=== PATIENT | male | born 1945 | race African-American/Black ===

== ENCOUNTER → 2016-03-21 | Outpatient (CLI) | payer MEDICARE, OTHER ==
[2016-03-21 11:23] LABS: ABSOLUTE EOSINOPHILS # (AUTO) 0.2 10^3/uL (0.0-0.6); ABSOLUTE LYMPHOCYTES (AUTO) 1.6 10^3/uL (0.5-4.7); ABSOLUTE MONOCYTES (AUTO) 0.6 10^3/uL (0.1-1.4); ABSOLUTE NEUT (AUTO) 3.5 10^3/uL (1.7-8.2); BASOPHILS % (AUTO) 0.5 % (0-2); HEMATOCRIT 34.9 % (37.9-51.0); HEMOGLOBIN 11.5 g/dL (13.5-17.0); HGB HCT DIFFERENCE -0.4; LYMPHOCYTES % (AUTO) 27.3 % (13-45); MEAN CORPUSCULAR HGB CONC 33.1 g/dL (32.0-36.0); MEAN CORPUSCULAR VOLUME 94 fl (80-97); MONOCYTES % (AUTO) 10.4 % (3-13); RED BLOOD COUNT 3.72 10^6/uL (4.35-5.55); RED CELL DISTRIBUTION WIDTH 13.7 % (11.5-14.0); SEGMENTED NEUTROPHILS % (AUTO) 58.8 % (42-78)
[2016-03-21 11:26] LABS: APPEARANCE,URINE CLEAR; BILIRUBIN,URINE NEGATIVE (NEGATIVE); GLUCOSE, URINE NEGATIVE (NEGATIVE); KETONES,URINE NEGATIVE (NEGATIVE); LEUKOCYTE ESTERASE,URINE NEGATIVE (NEGATIVE); NITRITE,URINE NEGATIVE (NEGATIVE); PROTEIN,URINE 30 mg/dL (NEGATIVE); URINE SPECIFIC GRAVITY 1.011; UROBILINOGEN,URINE NEGATIVE mg/dL (<2.0)
[2016-03-21 11:26] LABS: HEMATOCRIT 34.9 % (37.9-51.0); HEMOGLOBIN 11.5 g/dL (13.5-17.0); HGB HCT DIFFERENCE -0.4; MEAN CORPUSCULAR HGB CONC 33.1 g/dL (32.0-36.0); MEAN CORPUSCULAR VOLUME 94 fl (80-97); RED BLOOD COUNT 3.72 10^6/uL (4.35-5.55); RED CELL DISTRIBUTION WIDTH 13.7 % (11.5-14.0)
[2016-03-21 11:45] LABS: ALANINE AMINOTRANSFERASE 40 U/L (21-72); ALBUMIN 3.5 g/dL (3.5-5.0); ALKALINE PHOSPHATASE 62 U/L (38-126); ANION GAP 13 (5-19); ASPARTATE AMINO TRANSFERASE 26 U/L (17-59); BILIRUBIN,TOTAL 0.5 mg/dL (0.2-1.3); BLOOD UREA NITROGEN 24 mg/dL (7-20); CALCIUM 8.3 mg/dL (8.4-10.2); CARBON DIOXIDE 24 mmol/L (22-30); CHLORIDE 110 mmol/L (98-107); CREATININE RESULT 2.51 mg/dL (0.52-1.25); GLUCOSE 89 mg/dL (75-110); POTASSIUM 4.8 mmol/L (3.6-5.0); SODIUM 146.7 mmol/L (137-145); TOTAL PROTEIN 6.5 g/dL (6.3-8.2)
[2016-03-21 11:50] LABS: BLOOD UREA NITROGEN 24 mg/dL (7-20); CALCIUM 8.3 mg/dL (8.4-10.2); GLUCOSE 89 mg/dL (75-110)
[2016-03-21 11:51] LABS: ANION GAP 13 (5-19); CARBON DIOXIDE 24 mmol/L (22-30); CHLORIDE 110 mmol/L (98-107); CREATININE RESULT 2.51 mg/dL (0.52-1.25); POTASSIUM 4.8 mmol/L (3.6-5.0); SODIUM 146.7 mmol/L (137-145)
[2016-03-23 17:56] LABS: Direct HDL 44 mg/dL (>40); TRIGLYCERIDES 82 mg/dL (<150)
[2016-03-23 18:07] LABS: DIRECT LDL 136 mg/dL (<100)
== END ==
LOC: OD 09:54
PROVIDERS: ATTEND Internal Medicine Nephrology
DX: E11.22 Type 2 diabetes mellitus with diabetic chronic kidney disease (principal); N18.3 Chronic kidney disease, stage 3 (moderate); E87.5 Hyperkalemia; R80.9 Proteinuria, unspecified
CPT/HCPCS: 36415; 80048; 80053; 80061; 81001; 82728; 83036; 83540; 83550; 85025; 85027

== ENCOUNTER → 2016-04-09 | Outpatient (CLI) | payer MEDICARE, OTHER ==
--- NOTE | 2016-04-09 16:35 | XCELERA REPORT ---
[address] [address] Lower Extremity Venous Evaluation Name: CHRIS ROBERTSON Age: 70 yrs Gender: Male : 1945 Patient Status: Outpatient Patient Location: Study Date: 04/09/2016 10:40 AM Procedure: Color flow and duplex imaging of the veins of the right lower extremity as well as the left Common Femoral vein. Reason For Study: RLE SWELLING Ordering Physician: BREANNA ONEILL Performed By: Eduardo Mcginnis Right Sided Venous Evaluation Normal vessel filling wall to wall, compression and augmentation as well as Colour flow down to the infrageniculate veins. Left Sided Venous Evaluation The left common femoral vein is fully compressible. Spontaneous and phasic flow is present in the left common femoral vein. Interpretation Summary No duplex evidence of DVT or obstruction in the right lower extremity nor in the left Common Femoral vein. : BREANNA ONEILL [place]
== END ==
LOC: SP 10:08
PROVIDERS: ATTEND Internal Medicine
DX: M79.89 Other specified soft tissue disorders (principal)
CPT/HCPCS: 93971

== ENCOUNTER → 2016-04-19 | Outpatient (CLI) | payer MEDICARE, OTHER ==
--- NOTE | 2016-04-22 13:59 | XCELERA REPORT ---
[address] [address] Lower Extremity Arterial Evaluation Name: CHRIS ROBERTSON Age: 70 yrs Gender: Male : 1945 Patient Status: Outpatient Patient Location: Study Date: 04/19/2016 10:13 AM Procedure: A color flow and duplex scan of the lower extremity arteries was performed bilaterally with velocity and waveform anaylsis. Ankle brachial indicies performed. Reason For Study: ULCER Ordering Physician: GRAHAM DOE Performed By: Eduardo Mcginnis Measurements and Calculations Right Left DIRECTOR COUNCIL ON AGING PSV 165.0 134.1 cm/sec Prox PFA PSV -96.0 -119.4 cm/sec Dist SFA PSV -154.5 -126.5 cm/sec Prox Pop A PSV 71.1 69.9 cm/sec Mid ANGE PSV -25.1 cm/sec Dist ANGE PSV 54.5 152.2 cm/sec Mid TRENCHER DRIVER PSV 81.0 cm/sec Dist TRENCHER DRIVER PSV -98.2 cm/sec Dist Raymond A PSV -35.2 cm/sec Que Pedis PSV 29.4 55.5 cm/sec Right Side Arterial Evaluation Normal velocity, waveform and triphasic flow are present, from the Common Femoral artery to the Popliteal artery. Monophasic in the Posterior Tibial artery. Occlusion with monophasic distal reconstitution in the AnteriorTibial artery. The ankle-brachial index was not obtainable, non compressible.. 20-49 % stenosis is noted at the Posterior Tibial, artery. With sequential changes. Left Side Arterial Evaluation Normal velocity, waveform and triphasic flow are present, from the Common Femoral artery to the Popliteal artery. Monophasic in the Anterior Tibial artery. Occlusion with monophasic distal reconstitution in the Posterior artery. The ankle-brachial index was not obtainable, non compressible.. 20-49 % stenosis is noted at the Anterior Tibial, artery. With sequential changes. Interpretation Summary Severe hemodynamically significant lesions in the bilateral lower extremities, on duplex imaging, at rest. : GRAHAM DOE > Forrest Corral
--- NOTE | 2016-04-22 14:03 | XCELERA REPORT ---
[address] [address] Lower Extremity Venous Evaluation Name: CHRIS ROBERTSON Age: 70 yrs Gender: Male : 1945 Patient Status: Outpatient Patient Location: Study Date: 04/19/2016 10:45 AM Procedure: A bilateral duplex scan of the lower extremity veins was performed. The evaluation included responses to compression and other maneuvers with patient in the supine and standing positions to assess venous insufficiency. Reason For Study: ULCER Ordering Physician: GRAHAM DOE Performed By: Eduardo Mcginnis Right Sided Venous Evaluation Deep venous system evaluation shows patent veins with significant reflux identified. 2.3 second reflux in the CFV, no reflux in the Femoral vein. Sapheno Femoral junction: no reflux. Greater Saphenous vein, Proximal thigh: reflux: no reflux. Greater Saphenous vein, mid thigh: reflux: no reflux. Greater Saphenous vein, Distal thigh: reflux:no reflux. Greater Saphenous vein, Proximal below knee: reflux: no reflux. Greater Saphenous vein, Mid below knee: reflux: no reflux. Greater Saphenous vein, Distal below knee: reflux: no reflux. No significant Perforators identified. Left Sided Venous Evaluation Deep venous system evaluation shows patent veins with significant reflux identified. no reflux in the CFV, no reflux in the Femoral vein. Sapheno Femoral junction: no reflux. Greater Saphenous vein, Proximal thigh: reflux: no reflux. Greater Saphenous vein, mid thigh: reflux: no reflux. Greater Saphenous vein, Distal thigh: reflux:no reflux. Greater Saphenous vein, Proximal below knee: reflux: no reflux. Greater Saphenous vein, Mid below knee: reflux: no reflux. Greater Saphenous vein, Distal below knee: reflux: no reflux. No significant Perforators identified. Interpretation Summary No duplex evidence of DVT or obstruction in the bilateral lower extremities. Very limited deep reflux on the right only. : GRAHAM DOE [place]
== END ==
LOC: SP 09:49
PROVIDERS: ATTEND Nurse Practitioner Family
DX: L97.212 Non-pressure chronic ulcer of right calf with fat layer exposed (principal)
CPT/HCPCS: 93925; 93970

== ENCOUNTER → 2016-05-01 | Outpatient (CLI) | payer MEDICARE, OTHER ==
[2016-05-01 08:32] LABS: HEMATOCRIT 33.4 % (37.9-51.0); HGB HCT DIFFERENCE -0.4; MEAN CORPUSCULAR HEMOGLOBIN 30.7 pg (27.0-33.4); MEAN CORPUSCULAR HGB CONC 32.9 g/dL (32.0-36.0); MEAN CORPUSCULAR VOLUME 93 fl (80-97); RED BLOOD COUNT 3.58 10^6/uL (4.35-5.55); RED CELL DISTRIBUTION WIDTH 13.3 % (11.5-14.0); WHITE BLOOD COUNT 6.5 10^3/uL (4.0-10.5)
[2016-05-01 08:33] LABS: PROTHROMBIN TIME 25.3 SEC (11.4-15.4)
[2016-05-01 09:01] LABS: ANION GAP 9 (5-19); BLOOD UREA NITROGEN 22 mg/dL (7-20); CALCIUM 8.2 mg/dL (8.4-10.2); CARBON DIOXIDE 24 mmol/L (22-30); CHLORIDE 110 mmol/L (98-107); GLUCOSE 64 mg/dL (75-110); MAGNESIUM 1.8 mg/dL (1.6-2.3); POTASSIUM 4.6 mmol/L (3.6-5.0); SODIUM 142.5 mmol/L (137-145)
== END ==
LOC: OD 07:41
PROVIDERS: ATTEND Internal Medicine Nephrology
DX: I12.9 Hypertensive chronic kidney disease with stage 1 through stage 4 chronic kidney disease, or unspecified chronic kidney disease (principal); N18.3 Chronic kidney disease, stage 3 (moderate); Z79.01 Long term (current) use of anticoagulants; E87.5 Hyperkalemia
CPT/HCPCS: 36415; 80048; 83735; 85027; 85610

== ENCOUNTER → 2016-07-16 | Outpatient (CLI) | payer MEDICARE, OTHER | LOC: OD 07:33 | PROVIDERS: ATTEND Internal Medicine | DX: Z79.01 Long term (current) use of anticoagulants (principal) | CPT/HCPCS: 36415; 85610 ==

== ENCOUNTER → 2016-07-30 | Outpatient (CLI) | payer MEDICARE, OTHER ==
[2016-07-30 08:09] LABS: HEMOGLOBIN 10.8 g/dL (13.5-17.0); HGB HCT DIFFERENCE -0.6; MEAN CORPUSCULAR HEMOGLOBIN 30.8 pg (27.0-33.4); MEAN CORPUSCULAR HGB CONC 32.7 g/dL (32.0-36.0); MEAN CORPUSCULAR VOLUME 94 fl (80-97); RED BLOOD COUNT 3.51 10^6/uL (4.35-5.55); RED CELL DISTRIBUTION WIDTH 13.4 % (11.5-14.0); WHITE BLOOD COUNT 6.8 10^3/uL (4.0-10.5)
[2016-07-30 08:11] LABS: APPEARANCE,URINE CLEAR; BILIRUBIN,URINE NEGATIVE (NEGATIVE); GLUCOSE, URINE NEGATIVE (NEGATIVE); KETONES,URINE NEGATIVE (NEGATIVE); LEUKOCYTE ESTERASE,URINE NEGATIVE (NEGATIVE); NITRITE,URINE NEGATIVE (NEGATIVE); PROTEIN,URINE 30 mg/dL (NEGATIVE); URINE SPECIFIC GRAVITY 1.011; UROBILINOGEN,URINE NEGATIVE mg/dL (<2.0)
[2016-07-30 08:31] LABS: ANION GAP 11 (5-19); BLOOD UREA NITROGEN 30 mg/dL (7-20); CALCIUM 8.3 mg/dL (8.4-10.2); CARBON DIOXIDE 21 mmol/L (22-30); CHLORIDE 111 mmol/L (98-107); CREATININE RESULT 2.58 mg/dL (0.52-1.25); GLUCOSE 85 mg/dL (75-110); POTASSIUM 4.5 mmol/L (3.6-5.0)
== END ==
LOC: OD 07:11
PROVIDERS: ATTEND Internal Medicine Nephrology
DX: I12.9 Hypertensive chronic kidney disease with stage 1 through stage 4 chronic kidney disease, or unspecified chronic kidney disease (principal); N18.3 Chronic kidney disease, stage 3 (moderate); E87.5 Hyperkalemia
CPT/HCPCS: 36415; 80048; 81001; 85027

== ENCOUNTER → 2016-10-17 | Outpatient (CLI) | payer MEDICARE, OTHER ==
[2016-10-17 08:47] LABS: PROTHROMBIN TIME 25.8 SEC (11.4-15.4)
== END ==
LOC: OD 07:57
PROVIDERS: ATTEND Internal Medicine
DX: Z79.01 Long term (current) use of anticoagulants (principal)
CPT/HCPCS: 36415; 85610

== ENCOUNTER → 2016-12-19 | Outpatient (CLI) | payer MEDICARE, OTHER ==
[2016-12-19 10:06] LABS: PROTHROMBIN TIME 22.9 SEC (11.4-15.4)
== END ==
LOC: OD 08:53
PROVIDERS: ATTEND Internal Medicine
DX: Z79.01 Long term (current) use of anticoagulants (principal)
CPT/HCPCS: 36415; 85610

== ENCOUNTER → 2017-01-01 | Outpatient (CLI) | payer MEDICARE, OTHER ==
[2017-01-01 10:43] LABS: APPEARANCE,URINE CLEAR; BILIRUBIN,URINE NEGATIVE (NEGATIVE); GLUCOSE, URINE NEGATIVE (NEGATIVE); KETONES,URINE NEGATIVE (NEGATIVE); LEUKOCYTE ESTERASE,URINE NEGATIVE (NEGATIVE); NITRITE,URINE NEGATIVE (NEGATIVE); PROTEIN,URINE 100 mg/dL (NEGATIVE); UROBILINOGEN,URINE NEGATIVE mg/dL (<2.0)
[2017-01-01 10:47] LABS: HEMATOCRIT 33.6 % (37.9-51.0); HEMOGLOBIN 11.3 g/dL (13.5-17.0); HGB HCT DIFFERENCE 0.3; MEAN CORPUSCULAR HEMOGLOBIN 31.2 pg (27.0-33.4); MEAN CORPUSCULAR HGB CONC 33.6 g/dL (32.0-36.0); MEAN CORPUSCULAR VOLUME 93 fl (80-97); RED BLOOD COUNT 3.62 10^6/uL (4.35-5.55); RED CELL DISTRIBUTION WIDTH 13.6 % (11.5-14.0); WHITE BLOOD COUNT 6.5 10^3/uL (4.0-10.5)
[2017-01-01 10:54] LABS: URINE CREATININE 151.7 mg/dL (22-328); URINE PROTEIN 77.4 mg/dL (<12)
[2017-01-01 11:16] LABS: ANION GAP 11 (5-19); BLOOD UREA NITROGEN 24 mg/dL (7-20); CALCIUM 8.5 mg/dL (8.4-10.2); CARBON DIOXIDE 25 mmol/L (22-30); CHLORIDE 112 mmol/L (98-107); CREATININE RESULT 2.58 mg/dL (0.52-1.25); GLUCOSE 68 mg/dL (75-110); POTASSIUM 4.9 mmol/L (3.6-5.0)
== END ==
LOC: OD 09:24
PROVIDERS: ATTEND Internal Medicine Nephrology
DX: E11.22 Type 2 diabetes mellitus with diabetic chronic kidney disease (principal); N18.3 Chronic kidney disease, stage 3 (moderate); E87.5 Hyperkalemia; R80.9 Proteinuria, unspecified
CPT/HCPCS: 36415; 80048; 81001; 82570; 84156; 85027

== ENCOUNTER → 2017-01-04 | Outpatient (CLI) | payer MEDICARE, OTHER ==
[2017-01-04 09:36] LABS: ANION GAP 8 (5-19); BLOOD UREA NITROGEN 29 mg/dL (7-20); CALCIUM 8.2 mg/dL (8.4-10.2); CARBON DIOXIDE 25 mmol/L (22-30); CHLORIDE 111 mmol/L (98-107); CREATININE RESULT 2.68 mg/dL (0.52-1.25); GLUCOSE 134 mg/dL (75-110); POTASSIUM 4.5 mmol/L (3.6-5.0); SODIUM 144.2 mmol/L (137-145)
== END ==
LOC: OD 08:45
PROVIDERS: ATTEND Internal Medicine Nephrology
DX: E87.0 Hyperosmolality and hypernatremia (principal)
CPT/HCPCS: 36415; 80048

== ENCOUNTER → 2017-02-08 | Outpatient (CLI) | payer MEDICARE, OTHER ==
[2017-02-08 09:57] LABS: PROTHROMBIN TIME 27.5 SEC (11.4-15.4)
== END ==
LOC: OD 08:21
PROVIDERS: ATTEND Internal Medicine
DX: Z51.81 Encounter for therapeutic drug level monitoring (principal); Z79.01 Long term (current) use of anticoagulants
CPT/HCPCS: 36415; 85610

== ENCOUNTER → 2017-04-12 | Outpatient (CLI) | payer MEDICARE, OTHER ==
[2017-04-12 11:53] LABS: INTERNATIONAL RATION (INR) 2.36
== END ==
LOC: OD 11:14
PROVIDERS: ATTEND Internal Medicine
DX: Z51.81 Encounter for therapeutic drug level monitoring (principal); Z79.01 Long term (current) use of anticoagulants
CPT/HCPCS: 36415; 85610

== ENCOUNTER → 2017-06-07 | Outpatient (CLI) | payer MEDICARE, OTHER ==
[2017-06-07 09:53] LABS: ABSOLUTE EOSINOPHILS # (AUTO) 0.2 10^3/uL (0.0-0.6); ABSOLUTE LYMPHOCYTES (AUTO) 2.4 10^3/uL (0.5-4.7); ABSOLUTE MONOCYTES (AUTO) 0.6 10^3/uL (0.1-1.4); ABSOLUTE NEUT (AUTO) 3.9 10^3/uL (1.7-8.2); BASOPHILS % (AUTO) 0.6 % (0-2); EOSINOPHILS % (AUTO) 2.2 % (0-6); HEMATOCRIT 34.8 % (37.9-51.0); HEMOGLOBIN 11.5 g/dL (13.5-17.0); LYMPHOCYTES % (AUTO) 33.3 % (13-45); MEAN CORPUSCULAR HEMOGLOBIN 31.1 pg (27.0-33.4); MEAN CORPUSCULAR VOLUME 94 fl (80-97); MONOCYTES % (AUTO) 8.9 % (3-13); PLATELET COUNT 129 10^3/uL (150-450); RED CELL DISTRIBUTION WIDTH 13.7 % (11.5-14.0); TOTAL CELLS COUNTED % (AUTO) 100 %; WHITE BLOOD COUNT 7.1 10^3/uL (4.0-10.5)
[2017-06-07 10:12] LABS: ALANINE AMINOTRANSFERASE 35 U/L (21-72); ALBUMIN 3.9 g/dL (3.5-5.0); ALKALINE PHOSPHATASE 58 U/L (38-126); ANION GAP 10 (5-19); ASPARTATE AMINO TRANSFERASE 25 U/L (17-59); BILIRUBIN,DIRECT 0.2 mg/dL (0.0-0.4); BILIRUBIN,TOTAL 0.5 mg/dL (0.2-1.3); BLOOD UREA NITROGEN 29 mg/dL (7-20); CALCIUM 8.6 mg/dL (8.4-10.2); CARBON DIOXIDE 27 mmol/L (22-30); CHLORIDE 109 mmol/L (98-107); CHOLESTEROL 127.75 mg/dL (0-200); GLUCOSE 89 mg/dL (75-110); POTASSIUM 4.7 mmol/L (3.6-5.0); SODIUM 145.7 mmol/L (137-145); TOTAL PROTEIN 6.7 g/dL (6.3-8.2); TRIGLYCERIDES 85 mg/dL (<150)
[2017-06-07 10:23] LABS: DIRECT LDL 56 mg/dL (<100)
== END ==
LOC: OD 08:42
PROVIDERS: ATTEND Internal Medicine
DX: E11.22 Type 2 diabetes mellitus with diabetic chronic kidney disease (principal); N18.3 Chronic kidney disease, stage 3 (moderate); I25.10 Atherosclerotic heart disease of native coronary artery without angina pectoris; I73.9 Peripheral vascular disease, unspecified; E78.5 Hyperlipidemia, unspecified; R35.1 Nocturia
CPT/HCPCS: 36415; 80053; 80061; 82043; 83036; 84153; 84443; 85025

== ENCOUNTER → 2017-07-01 | Outpatient (CLI) | payer MEDICARE, OTHER ==
[2017-07-01 10:07] LABS: HEMOGLOBIN 11.3 g/dL (13.5-17.0); MEAN CORPUSCULAR HGB CONC 33.2 g/dL (32.0-36.0); MEAN CORPUSCULAR VOLUME 93 fl (80-97); PLATELET COUNT 126 10^3/uL (150-450); RED BLOOD COUNT 3.64 10^6/uL (4.35-5.55); RED CELL DISTRIBUTION WIDTH 13.3 % (11.5-14.0); WHITE BLOOD COUNT 5.8 10^3/uL (4.0-10.5)
[2017-07-01 10:24] LABS: ANION GAP 11 (5-19); BLOOD UREA NITROGEN 26 mg/dL (7-20); CALCIUM 8.6 mg/dL (8.4-10.2); CARBON DIOXIDE 24 mmol/L (22-30); CHLORIDE 111 mmol/L (98-107); GLUCOSE 85 mg/dL (75-110); POTASSIUM 4.6 mmol/L (3.6-5.0); SODIUM 145.7 mmol/L (137-145)
[2017-07-01 10:29] LABS: APPEARANCE,URINE CLEAR; BILIRUBIN,URINE NEGATIVE (NEGATIVE); COLOR,URINE YELLOW; GLUCOSE, URINE NEGATIVE (NEGATIVE); KETONES,URINE NEGATIVE (NEGATIVE); LEUKOCYTE ESTERASE,URINE NEGATIVE (NEGATIVE); NITRITE,URINE NEGATIVE (NEGATIVE); PROTEIN,URINE 100 mg/dL (NEGATIVE); URINE SPECIFIC GRAVITY 1.012; UROBILINOGEN,URINE NEGATIVE mg/dL (<2.0)
[2017-07-01 10:36] LABS: UR PRO/CREAT RATIO RESULT 0.5 mg/mg (0.0-0.2); URINE CREATININE 146.7 mg/dL (22-328)
== END ==
LOC: OD 09:26
PROVIDERS: ATTEND Internal Medicine Nephrology
DX: I12.9 Hypertensive chronic kidney disease with stage 1 through stage 4 chronic kidney disease, or unspecified chronic kidney disease (principal); N18.3 Chronic kidney disease, stage 3 (moderate); R80.9 Proteinuria, unspecified; D64.9 Anemia, unspecified; E11.9 Type 2 diabetes mellitus without complications
CPT/HCPCS: 36415; 80048; 81001; 82570; 84156; 85027

== ENCOUNTER → 2017-11-15 | Outpatient (CLI) | payer MEDICARE, OTHER ==
[2017-11-15 11:03] LABS: INTERNATIONAL RATION (INR) 3.04; PROTHROMBIN TIME 32.9 SEC (11.4-15.4)
== END ==
LOC: OD 08:48
PROVIDERS: ATTEND Internal Medicine
DX: I70.209 Unspecified atherosclerosis of native arteries of extremities, unspecified extremity (principal)
CPT/HCPCS: 36415; 85610

== ENCOUNTER → 2017-12-13 | Outpatient (CLI) | payer MEDICARE, OTHER ==
[2017-12-13 10:27] LABS: INTERNATIONAL RATION (INR) 2.57; PROTHROMBIN TIME 28.8 SEC (11.4-15.4)
== END ==
LOC: OD 09:21
PROVIDERS: ATTEND Internal Medicine
DX: I73.9 Peripheral vascular disease, unspecified (principal); Z51.81 Encounter for therapeutic drug level monitoring; Z79.01 Long term (current) use of anticoagulants
CPT/HCPCS: 36415; 85610

== ENCOUNTER → 2018-01-02 | Outpatient (CLI) | payer MEDICARE, OTHER ==
[2018-01-02 11:31] LABS: HEMOGLOBIN 11.4 g/dL (13.5-17.0); MEAN CORPUSCULAR HEMOGLOBIN 31.3 pg (27.0-33.4); MEAN CORPUSCULAR HGB CONC 33.4 g/dL (32.0-36.0); MEAN CORPUSCULAR VOLUME 94 fl (80-97); PLATELET COUNT 123 10^3/uL (150-450); RED BLOOD COUNT 3.63 10^6/uL (4.35-5.55); RED CELL DISTRIBUTION WIDTH 13.4 % (11.5-14.0); WHITE BLOOD COUNT 6.7 10^3/uL (4.0-10.5)
[2018-01-02 11:52] LABS: APPEARANCE,URINE CLEAR; BILIRUBIN,URINE NEGATIVE (NEGATIVE); COLOR,URINE YELLOW; GLUCOSE, URINE NEGATIVE (NEGATIVE); KETONES,URINE NEGATIVE (NEGATIVE); LEUKOCYTE ESTERASE,URINE NEGATIVE (NEGATIVE); NITRITE,URINE NEGATIVE (NEGATIVE); PROTEIN,URINE 30 mg/dL (NEGATIVE); URINE SPECIFIC GRAVITY 1.012; UROBILINOGEN,URINE NEGATIVE mg/dL (<2.0)
[2018-01-02 11:53] LABS: ANION GAP 8 (5-19); BLOOD UREA NITROGEN 31 mg/dL (7-20); CALCIUM 8.5 mg/dL (8.4-10.2); CARBON DIOXIDE 24 mmol/L (22-30); CHLORIDE 110 mmol/L (98-107); GLUCOSE 117 mg/dL (75-110); POTASSIUM 4.8 mmol/L (3.6-5.0); SODIUM 142.3 mmol/L (137-145)
[2018-01-02 12:08] LABS: UR PRO/CREAT RATIO RESULT 0.3 mg/mg (0.0-0.2); URINE CREATININE 108.9 mg/dL (22-328); URINE PROTEIN 34.5 mg/dL (<12)
== END ==
LOC: OD 10:55
PROVIDERS: ATTEND Internal Medicine Nephrology
DX: E11.22 Type 2 diabetes mellitus with diabetic chronic kidney disease (principal); I12.9 Hypertensive chronic kidney disease with stage 1 through stage 4 chronic kidney disease, or unspecified chronic kidney disease; N18.3 Chronic kidney disease, stage 3 (moderate); D64.9 Anemia, unspecified; R80.9 Proteinuria, unspecified; E87.5 Hyperkalemia
CPT/HCPCS: 36415; 80048; 81001; 82570; 84156; 85027

== ENCOUNTER → 2018-01-14 | Outpatient (CLI) | payer MEDICARE, OTHER ==
[2018-01-14 16:01] LABS: ANION GAP 10 (5-19); BLOOD UREA NITROGEN 31 mg/dL (7-20); CALCIUM 8.6 mg/dL (8.4-10.2); CARBON DIOXIDE 26 mmol/L (22-30); CHLORIDE 111 mmol/L (98-107); GLUCOSE 153 mg/dL (75-110); POTASSIUM 4.8 mmol/L (3.6-5.0)
== END ==
LOC: OD 14:23
PROVIDERS: ATTEND Internal Medicine Nephrology
DX: I12.9 Hypertensive chronic kidney disease with stage 1 through stage 4 chronic kidney disease, or unspecified chronic kidney disease (principal); E11.22 Type 2 diabetes mellitus with diabetic chronic kidney disease; N18.3 Chronic kidney disease, stage 3 (moderate); D64.9 Anemia, unspecified
CPT/HCPCS: 36415; 80048

== ENCOUNTER → 2018-04-18 | Outpatient (CLI) | payer MEDICARE, OTHER ==
[2018-04-18 12:12] LABS: ABSOLUTE EOSINOPHILS # (AUTO) 0.2 10^3/uL (0.0-0.6); ABSOLUTE LYMPHOCYTES (AUTO) 2.4 10^3/uL (0.5-4.7); ABSOLUTE MONOCYTES (AUTO) 0.6 10^3/uL (0.1-1.4); ABSOLUTE NEUT (AUTO) 3.6 10^3/uL (1.7-8.2); BASOPHILS % (AUTO) 0.5 % (0-2); EOSINOPHILS % (AUTO) 2.7 % (0-6); HEMATOCRIT 33.6 % (37.9-51.0); LYMPHOCYTES % (AUTO) 35.5 % (13-45); MEAN CORPUSCULAR HEMOGLOBIN 30.5 pg (27.0-33.4); MEAN CORPUSCULAR HGB CONC 32.8 g/dL (32.0-36.0); MEAN CORPUSCULAR VOLUME 93 fl (80-97); PLATELET COUNT 129 10^3/uL (150-450); RED BLOOD COUNT 3.61 10^6/uL (4.35-5.55); RED CELL DISTRIBUTION WIDTH 13.3 % (11.5-14.0); SEGMENTED NEUTROPHILS % (AUTO) 52.3 % (42-78); TOTAL CELLS COUNTED % (AUTO) 100 %; WHITE BLOOD COUNT 6.8 10^3/uL (4.0-10.5)
[2018-04-18 12:26] LABS: INTERNATIONAL RATION (INR) 2.08; PROTHROMBIN TIME 24.4 SEC (11.4-15.4)
[2018-04-18 12:42] LABS: ALANINE AMINOTRANSFERASE 34 U/L (21-72); ALBUMIN 4.1 g/dL (3.5-5.0); ALKALINE PHOSPHATASE 62 U/L (38-126); ANION GAP 6 (5-19); ASPARTATE AMINO TRANSFERASE 28 U/L (17-59); BILIRUBIN,DIRECT 0.2 mg/dL (0.0-0.4); BILIRUBIN,TOTAL 0.5 mg/dL (0.2-1.3); BLOOD UREA NITROGEN 29 mg/dL (7-20); CALCIUM 8.6 mg/dL (8.4-10.2); CARBON DIOXIDE 26 mmol/L (22-30); CHLORIDE 113 mmol/L (98-107); CHOLESTEROL 126.18 mg/dL (0-200); GLUCOSE 84 mg/dL (75-110); SODIUM 144.9 mmol/L (137-145); TOTAL PROTEIN 6.7 g/dL (6.3-8.2); TRIGLYCERIDES 59 mg/dL (<150)
[2018-04-18 12:52] LABS: DIRECT LDL 59 mg/dL (<100)
== END ==
LOC: OD 11:01
PROVIDERS: ATTEND Internal Medicine
DX: E11.22 Type 2 diabetes mellitus with diabetic chronic kidney disease (principal); N18.3 Chronic kidney disease, stage 3 (moderate); I25.10 Atherosclerotic heart disease of native coronary artery without angina pectoris; E78.5 Hyperlipidemia, unspecified; I73.9 Peripheral vascular disease, unspecified; Z79.01 Long term (current) use of anticoagulants
CPT/HCPCS: 36415; 80053; 80061; 83036; 84443; 85025; 85610

== ENCOUNTER → 2018-04-29 | Outpatient (CLI) | payer MEDICARE, OTHER ==
[2018-04-29 15:07] LABS: HEMOGLOBIN 10.9 g/dL (13.5-17.0); MEAN CORPUSCULAR HEMOGLOBIN 30.8 pg (27.0-33.4); MEAN CORPUSCULAR HGB CONC 33.2 g/dL (32.0-36.0); MEAN CORPUSCULAR VOLUME 93 fl (80-97); RED BLOOD COUNT 3.55 10^6/uL (4.35-5.55); RED CELL DISTRIBUTION WIDTH 13.6 % (11.5-14.0); WHITE BLOOD COUNT 7.2 10^3/uL (4.0-10.5)
[2018-04-29 15:09] LABS: APPEARANCE,URINE CLEAR; BILIRUBIN,URINE NEGATIVE (NEGATIVE); COLOR,URINE YELLOW; GLUCOSE, URINE NEGATIVE (NEGATIVE); KETONES,URINE NEGATIVE (NEGATIVE); LEUKOCYTE ESTERASE,URINE NEGATIVE (NEGATIVE); NITRITE,URINE NEGATIVE (NEGATIVE); PROTEIN,URINE 30 mg/dL (NEGATIVE); URINE SPECIFIC GRAVITY 1.012; UROBILINOGEN,URINE NEGATIVE mg/dL (<2.0)
[2018-04-29 15:24] LABS: PLATELET COUNT 137 10^3/uL (150-450)
[2018-04-30 09:57] LABS: ANION GAP 8 (5-19); BLOOD UREA NITROGEN 32 mg/dL (7-20); CALCIUM 8.5 mg/dL (8.4-10.2); CARBON DIOXIDE 24 mmol/L (22-30); CHLORIDE 114 mmol/L (98-107); GLUCOSE 97 mg/dL (75-110); POTASSIUM 5.2 mmol/L (3.6-5.0)
== END ==
LOC: OD 14:15
PROVIDERS: ATTEND Internal Medicine Nephrology
DX: I12.9 Hypertensive chronic kidney disease with stage 1 through stage 4 chronic kidney disease, or unspecified chronic kidney disease (principal); N18.3 Chronic kidney disease, stage 3 (moderate); E87.5 Hyperkalemia
CPT/HCPCS: 36415; 80048; 81001; 85027